=== PATIENT | female | born 1965 | race Caucasian/White ===

== ENCOUNTER 2021-04-09 19:07 | Emergency (ER) | payer OTHER ==
[2021-04-09 19:28] VITALS: BP 156/91; PULSE 79; TEMP 98; BMI 29.2
== END 2021-04-09 21:40 | disposition home or self-care (01) ==
LOC: MERGE 19:07 → JER 19:07
DX: R03.0 Elevated blood-pressure reading, without diagnosis of hypertension (principal)
CPT/HCPCS: 99281-25

== ENCOUNTER 2021-11-12 12:52 | Emergency (ER) | payer OTHER ==
[2021-11-12 13:08] VITALS: BP 159/89; PULSE 79; TEMP 97.8; BMI 31.2
[2021-11-12] MEDS ORDERED: DIPHTH,PERTUSS(ACELL),TET 0.5 ML DISP.SYRIN IM ONE ×2 (13:41→13:46)
[2021-11-12] MEDS ORDERED: ACETAMINOPHEN 500 MG TABLET (FP) PO ONE (13:41)
[2021-11-12] MEDS ORDERED: ACETAMINOPHEN 500 MG TABLET (FP) ONE (13:46)
== END 2021-11-12 14:29 | disposition home or self-care (01) ==
LOC: JERFT 12:52
PROC: 3E0234Z Introduction of Serum, Toxoid and Vaccine into Muscle, Percutaneous Approach (ICD-10-PCS; principal; 2021-11-12)
DX: S61.211A Laceration without foreign body of left index finger without damage to nail, initial encounter (principal); W26.0XXA Contact with knife, initial encounter
CPT/HCPCS: 90471; 90715; 99284-25

== ENCOUNTER 2024-10-25 17:21 | Emergency (ER) | payer OTHER ==
[2024-10-25 17:30] VITALS: TEMP 98.3; BMI 25.8
[2024-10-25] MEDS ORDERED: KETOROLAC TROMETHAMINE 30 MG/1 ML VIAL ONE (19:44)
[2024-10-25] MEDS ORDERED: DEXAMETHASONE 4 MG TABLET (FP) ONE (19:44)
[2024-10-25] MEDS: KETOROLAC TROMETHAMINE 30 MG/1 ML VIAL IM ONE (19:50)
[2024-10-25] MEDS: DEXAMETHASONE 4 MG TABLET (FP) PO ONE ×2 (19:50)
[2024-10-25 20:44] VITALS: BP 179/73; PULSE 74; RESP 16
== END 2024-10-25 20:46 | disposition home or self-care (01) ==
LOC: JER 17:21
PROC: 3E0233Z Introduction of Anti-inflammatory into Muscle, Percutaneous Approach (ICD-10-PCS; principal; 2024-10-25)
DX: M65.251 Calcific tendinitis, right thigh (principal); R26.2 Difficulty in walking, not elsewhere classified
CPT/HCPCS: 73502-TC-RT-FY; 73552-TC-RT-FY; 99284-25